=== PATIENT | male | born 1950 | race Caucasian/White ===

== ENCOUNTER → 2017-06-22 | Outpatient (CLI) | payer MEDICARE, OTHER ==
[~2017-06-22] MED LIST: ALBU8.5H IH; ALL100 PO; ALLO100T70 PO; AMLO-122 PO; ASPI81TA94 PO; ATEN-1 PO; CPAP; DOCU-416 PO; FLUT1DIS28 IH; GLIM2TAB43 PO; GLY25 PO; HYDR12.561 PO; LEVO50TA86 PO; LINA5TAB PO; METF-410 PO; METF10002 PO; OXYC-373 PO; [UNRECOGNIZED DRUG - CODE] PO
--- NOTE | 2017-06-22 14:49 | RADIOLOGY IMAGING REPORT ---
FACILITY: [facility] PATIENT NAME: Ye Ghotra : 1950 MR: [id number] V: [id number] EXAM DATE: ORDERING PHYSICIAN: ETHAN DALLAS TECHNOLOGIST: [facility] Patient: Ye Ghotra : 1950 Visit/Account:[id number] Date of Sevice: 06/22/2017 CHEST PA AND LAT COMPARISON: None. HISTORY: polycythemia, copd,dwaine FINDINGS: CARDIAC/VASC: No cardiac silhouette abnormality or cardiomegaly. Unremarkable pulmonary vasculatu re. MEDIASTINUM: No visible mass or adenopathy. Mild aortic arch calcifications. LUNGS/PLEURA: No pneumothorax. Lung volumes considered upper normal for a good inspiratory effort. N o concerning nodules or masses. No significant pulmonary parenchymal abnormalities. No effusion or p leural thickening. BONES: No fracture or visible bony lesion. Mild thoracic spine degenerative changes. OTHER:Negative. IMPRESSION: No acute cardiopulmonary process. Report Dictated By: Gómez Russell at 06/22/2017 2:44 PM Report E-Signed By: Gómez Russell at 06/22/2017 2:45 PM WSN:[id number]
== END ==
LOC: RAD 14:09
PROVIDERS: ATTEND Family Medicine
DX: I70.0 Atherosclerosis of aorta (principal); M47.894 Other spondylosis, thoracic region
CPT/HCPCS: 71046

== ENCOUNTER → 2018-01-02 | Outpatient (CLI) | payer MEDICARE, OTHER ==
[~2018-01-02] MED LIST changes: +ATEN-65 PO; -METF-410 PO; +METF-450 PO
== END ==
LOC: RESP 00:32
PROVIDERS: ATTEND Family Medicine
DX: J98.4 Other disorders of lung (principal)
CPT/HCPCS: 94060; 94726; 94729

== ENCOUNTER → 2018-01-03 | Outpatient (CLI) | payer MEDICARE, OTHER ==
--- NOTE | 2018-01-03 09:45 | RADIOLOGY IMAGING REPORT ---
FACILITY: [facility] - [place] PATIENT NAME: Ye Ghotra : 1950 MR: [id number] V: [id number] EXAM DATE: ORDERING PHYSICIAN: ETHAN DALLAS TECHNOLOGIST: Location: [facility] [place] Patient: Ye Ghotra : 1950 Visit/Account:[id number] Date of Sevice: 01/03/2018 EXAMINATION: Ultrasound aorta with Doppler evaluation HISTORY: AAA screening, history of smoking, diabetes and hypertension COMPARISON: None. FINDINGS: Suprarenal abdominal aorta: 2 x 1.9 cm AP and transverse dimensions Superior infrarenal abdominal aorta: 1.6 x 1.7 cm AP and transverse dimensions Mid infrarenal abdominal aorta: 1.4 x 1.8 cm AP and transverse dimensions Inferior infrarenal abdominal aorta: 1.4 x 1.5 cm AP and transverse dimensions Proximal common iliac artery diameter: Left 0.8 cm; right 0.8 cm Aorta wall: Negative. Aorta and proximal common iliac arteries are patent by duplex Doppler ultrasound. IMPRESSION: No evidence for AAA. Report Dictated By: Lennox Holt MD at 01/03/2018 9:33 AM Report E-Signed By: eLnnox Holt MD at 01/03/2018 9:36 AM WSN:[email or web address]
== END ==
LOC: US 00:23
PROVIDERS: ATTEND Family Medicine
DX: Z13.6 Encounter for screening for cardiovascular disorders (principal); Z87.891 Personal history of nicotine dependence
CPT/HCPCS: 93979

== ENCOUNTER → 2018-04-26 | Outpatient (CLI) | payer MEDICARE, OTHER ==
[~2018-04-26] MED LIST changes: +eye vitamin
== END ==
LOC: LAB 13:46
PROVIDERS: ATTEND Family Medicine
DX: E11.9 Type 2 diabetes mellitus without complications (principal)
CPT/HCPCS: 36415; 83036

== ENCOUNTER → 2018-10-25 | Outpatient (CLI) | payer MEDICARE, OTHER ==
[~2018-10-25] MED LIST changes: +METF-452 PO; +PNEU0.5D3 IM
== END ==
LOC: LAB 13:41
PROVIDERS: ATTEND Family Medicine
DX: M10.9 Gout, unspecified (principal); E03.9 Hypothyroidism, unspecified; E11.9 Type 2 diabetes mellitus without complications; I10 Essential (primary) hypertension
CPT/HCPCS: 36415; 82040; 82247; 82310; 82374; 82435; 82565; 82947; 83036; 84075; 84132; 84155; 84295; 84443; 84450; 84460; 84520; 84550